=== PATIENT | female | born 1970 | race Caucasian/White ===

== ENCOUNTER 2024-04-16 13:04 | Emergency (ER) | payer BC, SELFPAY ==
[2024-04-16 13:12] VITALS: BP 121/73
[2024-04-16 14:40] LABS: % Eosinophils 1.4 % (0-6); % Immature Granulocytes 0.3 % (0-0.5); % Lymphocytes 25.5 % (20.5-51.1); % Monocytes 6.9 % (1.7-9.3); % Neutrophils 64.9 % (42.2-75.2); Absolute Basophils 0.1 10^3/uL (0-0.2); Absolute Eosinophils 0.1 10^3/uL (0-0.7); Absolute Lymphocytes 1.6 10^3/uL (1.2-3.4); Absolute Monocytes 0.4 10^3/uL (0.1-0.6); Absolute Neutrophils 4.1 10^3/uL (1.4-6.5); Hematocrit 38.9 % (37.0-47.0); Hemoglobin 12.8 g/dL (12.0-16.0); Mean Corp Hgb Conc. 32.9 g/dL (33.0-37.0); Mean Corpuscular Hgb 28.3 pg (27.0-31.0); Mean Corpuscular Volume 85.9 fL (81.0-99.0); Mean Platelet Volume 9.9 fL (7.4-10.4); Nucleated Red Blood Cells % 0 %; Platelet Count 232 10^3/uL (130-400); Red Blood Cell Count 4.53 10^6/uL (4.20-5.40); Red Cell Dist. Width 13.8 % (11.5-14.5); White Blood Cell Count 6.2 10^3/uL (4.8-10.8)
--- NOTE | 2024-04-16 14:54 | ED.GENMED ---
History of Present Illness
<Deepak Canela PA-C - Last Filed: 04/17/24 08:49>
General
Chief Complaint: Headache
Time Seen by Provider: 04/16/24 13:59
History of Present Illness
History of Present Illness:
54-year-old female presents to the emergency department for evaluation of a sudden onset right-sided neck pain and headache, states she was at work seated at a desk on a computer when the symptoms began. Seems to have subsided somewhat but was
maximal in onset. Radiates from the right posterior neck to the base of the skull and distally to the trapezius. Pain is worse when rotating the neck to the right. Denies any upper extremity paresthesias or vertigo. No vision changes,
photophobia, nausea, or vomiting. Has never had any similar symptoms. No recent head or neck trauma, denies any recent therapy or chiropractic treatments. Pain rated as moderate at this time.
Review of Systems
<Deepak Canela PA-C - Last Filed: 04/17/24 08:49>
Review of Systems
Allergies reviewed?: Yes
All Other Systems: ROS reviewed and negative except as documented in HPI and ROS
Phy Exam
<Deepak Canela PA-C - Last Filed: 04/17/24 08:49>
Physical Exam
Physical Exam:
GEN: Well appearing, NAD, WDWN
HEENT: Oral mucosa moist, no scleral icterus, no nasal congestion. No reproducible tenderness to the anterior posterior cervical musculature, no palpable cervical adenopathy anteriorly or posteriorly. No midline cervical spine tenderness. Limited
rightward rotation of the C-spine secondary to pain, unrestricted leftward rotation
Cardiac: Regular rate and rhythm, no murmur
Lung: No respiratory distress, no tachypnea
MSK: No gross deformity or injuries
Skin: Good color, no pallor or jaundice, no rashes
Neuro: AO x3; CN II-XII grossly intact. BUE strength 5/5 in all stevenson, sensation intact and symmetric. BLE strength 5/5 in all stevenson, sensation intact and symmetric
Psych: Calm, cooperative
Course
<Deepak Canela PA-C - Last Filed: 04/17/24 08:49>
Orders/Labs/Results
Orders:
Orders
04/16/24 13:07
ECG [Electrocardiogram (*1)] Urgent
Reason for Study: Other
Other Reason for Exam: jaw pain
EKG- Treatment ONCE
04/16/24 14:11
CT Head & Neck Angio W/wo IV Urgent
Comment:
Reason For Exam: severe R sided h/a/neck pain
04/16/24 14:31
Basic Metabolic Panel Urgent
Complete Blood Count/With Diff Urgent
Abnormal Lab Results
04/16/24
14:31
MCHC 32.9 L g/dL
(33.0-37.0)
04/16/24 14:31
04/16/24 14:31
Vital Signs
Initial and Last Documented VS:
Initial Vital Signs
Temp Pulse Resp BP Pulse Ox
98.1 F 72 18 121/73 98
04/16/24 13:12 04/16/24 13:12 04/16/24 13:12 04/16/24 13:12 04/16/24 13:12
Last Documented Vital Signs
Temp Pulse Resp BP Pulse Ox
98.1 F 69 16 100/60 100
04/16/24 13:12 04/16/24 16:00 04/16/24 16:00 04/16/24 16:00 04/16/24 16:00
<Loyda Rodriguez PA-C - Last Filed: 04/16/24 16:08>
Orders/Labs/Results
Orders:
Orders
04/16/24 13:07
ECG [Electrocardiogram (*1)] Urgent
Reason for Study: Other
Other Reason for Exam: jaw pain
EKG- Treatment ONCE
04/16/24 14:11
CT Head & Neck Angio W/wo IV Urgent
Comment:
Reason For Exam: severe R sided h/a/neck pain
04/16/24 14:31
Basic Metabolic Panel Urgent
Complete Blood Count/With Diff Urgent
Abnormal Lab Results
04/16/24
14:31
MCHC 32.9 L g/dL
(33.0-37.0)
04/16/24 14:31
04/16/24 14:31
Vital Signs
Initial and Last Documented VS:
Initial Vital Signs
Temp Pulse Resp BP Pulse Ox
98.1 F 72 18 121/73 98
04/16/24 13:12 04/16/24 13:12 04/16/24 13:12 04/16/24 13:12 04/16/24 13:12
Last Documented Vital Signs
Temp Pulse Resp BP Pulse Ox
98.1 F 69 16 100/60 100
04/16/24 13:12 04/16/24 16:00 04/16/24 16:00 04/16/24 16:00 04/16/24 16:00
<Deepak Canela PA-C - Last Filed: 04/17/24 08:49>
*Critical Care Note
Total Time (30-74mins, 75-104mins- exclusive of procedures): Not Applicable
<Loyda Rodriguez PA-C - Last Filed: 04/16/24 16:08>
Update Note
Update Note:
04/16/2024 1607 PM
Assumed care of this patient at 1500
Patient is a 54-year-old female complaining to the previous provider about an onset of headache and right-sided neck pain which went up to her head and down her back and into her right shoulder associated with painful range of motion, worsening with
lateral rotation to the right. No dizziness, vision changes, vomiting
Started this afternoon. For the previous provider patient had no midline tenderness and a normal neurologic exam but given the history was getting a CT angiogram to rule out dissection. Patient had lab work which was reviewed and negative. I
checked on her and she says her pain is much better. She was on the phone at the time. Awaiting to go to CAT scan. Will reassess after her CT results.
ED Attending Note
<Deepak Canela PA-C - Last Filed: 04/17/24 08:49>
-
Portions of this chart may have been created with voice recognition software.� Occasional wrong word or��sound alike� substitutions may have occurred due to the inherent limitations of voice recognition software.
Discharge Plan
Departure
Patient Disposition: Home (Routine Discharge)
Date of Disposition: 04/16/24
Time of Disposition: 17:14
Patient with high blood pressure during this ER visit?: No
Condition: Fair
Covid-19: Not Applicable
Discharge Problem:
Neck pain
Instructions: Muscle and Bone Pain (DC)
Referrals:
NONE,* [Family Provider] -
Activity Restrictions/Additional Instructions:
YOUR CAT SCAN IS REASSURING - NO FINDINGS CONCERNING FOR DISSECTION OR CIRCULATION PROBLEMS
YOUR PAIN MAY BE MUSCULAR
YOU CAN TRY TYLENOL OR MOTRIN FOR PAIN NEEDED
HEAT OFF AND ON
AVOID HEAVY LIFTING OR STRENUOUS ACTIVITY AND RETURN FOR : WROSENING/SEVERE PAIN, WEAKNESS OR NUMBNESS IN EXTREMITIES, DOUBLE OR BLURRY VISION, WORST HEADACHE OF LIFE, OR ANY CONCERNS.
Interventions
Interventions:
*Risk Screen - Suicide Last Done: 04/16/24 13:12
*General Assessment Last Done: 04/16/24 13:12
*Neglect/Abuse Screening Last Done: 04/16/24 13:12
*Nursing Disposition Last Done: 04/16/24 17:23
ED-Musculoskeletal Assessment Last Done: 04/16/24 13:35
ED- Neurological Assessment Last Done: 04/16/24 13:35
Discharge Date and Time
Discharge Date/Time: 04/16/24 18:00
Print Language: [place]
[2024-04-16 14:55] LABS: Blood Urea Nitrogen 15 mg/dl (7-17); Calcium 9.1 mg/dl (8.4-10.2); Carbon Dioxide 27 mmol/L (22-30); Chloride 104 mmol/L (98-107); Glucose 81 mg/dl (70-99); Potassium 3.9 mmol/L (3.5-5.1); Sodium 136 mmol/L (135-145); eGFR > 60.00
[2024-04-16 16:00] VITALS: BP 100/60
== END 2024-04-16 18:00 | disposition home or self-care (01) ==
LOC: EMR 13:04
PROVIDERS: Physician Assistant; EMERGENCY PHYSICIAN Emergency Medicine
DX: M54.2 Cervicalgia (principal)
CPT/HCPCS: 99285; 70496; 70498; 80048; 85025; 93005; Q9967